=== PATIENT | male | born 1940 | race Two or more races ===

== ENCOUNTER 2017-11-30 14:15 | Inpatient (IN) | payer OTHER ==
[~2017-11-30] VITALS: Ht 162.6 cm; Wt 81.6 kg
[2017-12-11] MEDS ORDERED: INTESTINEX680 M1 PO (10:31)
[2017-12-11] MEDS ORDERED: PERCOCET 5-3251 EACH PO (10:31)
== END 2017-12-11 14:10 | disposition home or self-care (01) | DRG 331 ==
LOC: ADM 14:15 → SURH 12-02 14:30 → EDSTATUS 12-02 14:30 → O/R 12-07 09:33 → SURG 12-07 09:33 → SURH 12-07 10:15 → SURG 12-07 21:16
PROVIDERS: Colon & Rectal Surgery
PROC: 0D1N0Z4 Bypass Sigmoid Colon to Cutaneous, Open Approach (ICD-10-PCS; 2017-12-07)
PROC: 0DQB0ZZ Repair Ileum, Open Approach (ICD-10-PCS; 2017-12-07)
PROC: 0DJD8ZZ Inspection of Lower Intestinal Tract, Via Natural or Artificial Opening Endoscopic (ICD-10-PCS; 2017-12-07)
PROC: 0DTP0ZZ Resection of Rectum, Open Approach (ICD-10-PCS; principal; 2017-12-07 10:15)
DX: K62.4 Stenosis of anus and rectum (principal); Z43.2 Encounter for attention to ileostomy

== ENCOUNTER 2019-02-06 14:46 | Inpatient (IN) | payer OTHER ==
[~2019-02-06] VITALS: Ht 152.4 cm; Wt 80.7 kg
[~2019-02-06 14:46] MED LIST: INTESTINEX680 M1 PO; PERCOCET 5-3251 EACH PO
[2019-02-27] MEDS ORDERED: PRESION (10:39)
[2019-03-07] MEDS ORDERED: LOSARTAN POTAS100 MG PO (16:52)
[2019-03-07] MEDS ORDERED: LEVOTHYROXINE112 MCG PO (16:52)
== END 2019-03-10 19:58 | disposition home or self-care (01) | DRG 330 ==
LOC: SURG 02-27 08:30 → O/R 03-07 06:46 → SURH 03-07 06:46 → SURG 03-07 08:30 → SURH 03-07 19:29 → SURG 03-08 16:07
PROVIDERS: ADMIT Colon & Rectal Surgery
PROC: 0DQ80ZZ Repair Small Intestine, Open Approach (ICD-10-PCS; 2019-03-07)
PROC: 0DNW0ZZ Release Peritoneum, Open Approach (ICD-10-PCS; principal; 2019-03-07 10:45)
DX: K56.51 Intestinal adhesions [bands], with partial obstruction (principal); K91.72 Accidental puncture and laceration of a digestive system organ or structure during other procedure; I10 Essential (primary) hypertension